=== PATIENT | male | born 2000 | race Caucasian/White ===

== ENCOUNTER 2022-12-24 13:46 | Emergency (ER) | payer MEDICAID, SELFPAY ==
[2022-12-24 14:39] VITALS: BP 151/96; PULSE 87; RESP 18; TEMP 36.6; O2SAT 98; BMI 38.7
--- NOTE | 2022-12-24 14:42 | ED.GENADULT ---
HPI - General Adult General Chief complaint: Skin/Abscess/Foreign Body Stated complaint: rash all over body Time Seen by Provider: 12/24/22 14:41 Source: patient Mode of arrival: ambulatory Limitations: no limitations History of Present Illness HPI narrative: 22 yold male presents to the ED for itchy rash of abdomen/and upper/lower extremities for one week. patient denies any swelling of lips/tongue, chest pain, or shortness of breath. patient denies any knwon allergies. Related Data Previous Rx's Medication Instructions Recorded diphenhydramine HCl 25 mg capsule 25 mg PO TID PRN allergic reaction 12/24/22 (Benadryl) 7 days #21 caps famotidine 20 mg tablet (Pepcid) 20 mg PO BID 7 days #14 tabs 12/24/22 hydrocortisone 1 % topical cream 1 appl topical BID PRN rash 2 12/24/22 weeks #28.4 grams prednisone 20 mg tablet 40 mg PO DAILY 5 days #10 tabs 12/24/22 Allergies Allergy/AdvReac Type Severity Reaction Status Date / Time No Known Allergies Allergy Verified 12/24/22 14:38 Review of Systems Review of Systems: Yes all other systems are reviewed and are negative [facility] Social History Social History Advance Directives: No Advance Directives Information Provided: No Physical Exam ED Vital Signs: Vital Signs - 24 hr 12/24/22 14:39 Temperature 98 F Pulse Rate 87 Respiratory Rate 18 Blood Pressure 151/96 H Pulse Oximetry 98 Oxygen Delivery Method Room Air BMI result Body Mass Index 38.7 Const General: cooperative, healthy appearing, comfortable, no acute distress, well developed, alert, awake and Physically active Orientation/consciousness: oriented to person, oriented to place, oriented to time and patient oriented x3 HENMT Other: Negative for facial swelling, tongue swelling, lip swelling, or uvula swelling. no rash on face or neck Head: Yes normal to inspection, Yes No palpable skull fracture present, Yes normocephalic, Yes atraumatic and No abrasion Throat: Yes posterior oropharynx normal, Yes tonsils normal and Yes uvula midline Eyes General: appearance normal, both eyes and all related structures Neck Neck: Yes normal visual inspection, Yes full ROM, Yes no lymphadenopathy, Yes no meningeal signs, Yes trachea midline, Yes supple, No anterior neck swelling and No tender Chest Other: uticaria rash Chest palpation & inspection: normal inspection of the chest and normal palpation of entire chest wall Resp Effort & Inspection: normal respiratory effort and able to speak in complete sentences Auscultation: clear to auscultation bilaterally Cardio Jugular venous distension: no JVD Heart sounds: S1 normal heart sound present and S2 normal heart sound present GI Other: uticaria rash Inspection: Yes normal to inspection and No abdominal wall ecchymosis Palpation (GI): Soft to palpation, not firm, nontender, no guarding and not rigid General: No CVA tenderness and Yes no CVA tenderness Back/Spine/Pelvis Other: Positive utciaria Back: no CVA tenderness, No CVA tenderness and No back tenderness Skin Other: Positive uticaria of upper and lower extremities. whole body negative for erythema migrans. General skin exam: elasticity normal, turgor normal and atrophy Neuro General: oriented to person, oriented to place, oriented to time, patient oriented x3, gait normal, tone normal, moves all extremities, Normal light touch and pain sensation, no meningeal signs, no focal motor deficits, CN's II-XI intact bilaterally and normal sensation to monofilament Extrem General: Yes normal to inspection and Yes full ROM Psych Appearance: grossly normal, well kempt and not disheveled Course Course Course Narrative: RME: 22 yold male presents to the ED for itchy rash on abdomen, arms, and legs for one week after. patient denies any swelling of lips, tongue swelilng, shortness of breath, or new allergies. patient discharge with benadryl, prednisone, pepcud, and hydrocrotoinesone Medical Decision Making Medical Decision Making MDM Narrative: 22 yold male presents to the ED for uticaria of chest/abdomen/extremities for onre week. patient unknwon of any new allergies. patient is not in any respiratory distress. no signs of angioedema. patient discharge with steroids, benadryl, and pepecid Differential Diagnosis Differential Diagnoses: The differential diagnosis associated with the presentation includes (Allergic reaction, cellulitis, lyme, dermaitits, bed bug bites, scabies) Admission/Observation Consideration of admission/observation: Escalation of care including admission/observation considered Independent Historian Clinical information obtained from an independent historian. History obtained from or confirmed by: Other (Mother) Prescription Management I considered prescription management with: Other (Steroids, benadryl, pepecid) Discharge Plan Discharge Clinical Impression: Allergic reaction, Allergic urticaria Patient Disposition: Home, Self-Care Instructions: Urticaria (ED), General Allergic Reaction (ED) Additional Instructions: Return to the ED for any lip sweling, tongue swelling, shortness of breath, fever, chills, worsening rash, or any other concerning symptoms. Please follow up with PCP Prescriptions: New diphenhydramine HCl [Benadryl] 25 mg capsule 25 mg PO TID PRN (Reason: allergic reaction) 7 Days Qty: 21 0RF prednisone 20 mg tablet 40 mg PO DAILY 5 Days Qty: 10 0RF famotidine [Pepcid] 20 mg tablet 20 mg PO BID 7 Days Qty: 14 0RF hydrocortisone 1 % cream 1 appl topical BID PRN (Reason: rash) 14 Days Qty: 28.4 0RF Rx Instructions: DO not put on face or genitals. Stand Alone Forms: Work/School Release Interventions: ED Discharge Assessment Last Done: 12/24/22 15:08 Discharge Date/Time: 12/24/22 15:09 Print Language: Colombian
== END 2022-12-24 15:09 | disposition home or self-care (01) ==
LOC: HO.ED 15:04
PROVIDERS: Emergency Provider Emergency Medicine; PCP Pediatrics
DX: L50.0 Allergic urticaria (principal)
CPT/HCPCS: 99282